=== PATIENT | female | born 1960 | race Caucasian/White ===

== ENCOUNTER → 2023-05-26 16:10 | Outpatient (REF) | payer OTHER, SELFPAY | LOC: RAD 16:10 | PROVIDERS: ATTENDING PHYSICIAN Nurse Practitioner Adult Health | DX: M54.9 Dorsalgia, unspecified (principal); Z87.442 Personal history of urinary calculi | CPT/HCPCS: 76770 ==

== ENCOUNTER 2023-06-09 06:15 | Day surgery (SDC) | payer OTHER, SELFPAY ==
[2023-06-07 07:43] VITALS: BMI 21.8
[2023-06-07 08:57] LABS: Hematocrit 42.5 % (37.0-47.0); Hemoglobin 14.6 g/dL (12.0-16.0); Mean Corp Hgb Conc. 34.4 g/dL (33.0-37.0); Mean Corpuscular Hgb 31.9 pg (27.0-31.0); Mean Corpuscular Volume 92.8 fL (81.0-99.0); Mean Platelet Volume 9.1 fL (7.4-10.4); Platelet Count 272 10^3/uL (130-400); Red Blood Cell Count 4.58 10^6/uL (4.20-5.40); Red Cell Dist. Width 12.2 % (11.5-14.5); White Blood Cell Count 7.4 10^3/uL (4.8-10.8)
[2023-06-07 09:01] LABS: Urine Albumin 2+ (Neg - Trace); Urine Bilirubin 1+ (Negative); Urine Character Clear (Clear); Urine Color Yellow; Urine Glucose Negative (Negative); Urine Ketone Trace (Negative); Urine Leukocyte 2+ (Negative); Urine Nitrite Negative (Negative); Urine Occult Blood 4+ (Negative); Urine Specific Gravity 1.025 (<1.030); Urine Urobilinogen Negative (Neg - 1+)
[2023-06-07 09:08] LABS: APTT 27.1 Sec (23.4-35.0); INR 0.94; PT 12.6 Sec (11.4-14.6)
[2023-06-07 09:46] LABS: Urine Calcium Oxalate Crystals Present
[2023-06-07 09:47] LABS: Urine Bacteria Few (Negative); Urine Red Blood Cell >100 /HPF (0-2); Urine White Cell 70-80 /HPF (0-5)
[2023-06-07 10:21] LABS: Blood Urea Nitrogen 27 mg/dl (7-17); Carbon Dioxide 27 mmol/L (22-30); Chloride 103 mmol/L (98-107); Estimated Creatinine Clearance 71 ml/min; Glucose 85 mg/dl (70-99); Potassium 4.8 mmol/L (3.5-5.1); Sodium 137 mmol/L (135-145); eGFR > 60.00
--- NOTE | 2023-06-07 10:43 | PTCARENOTE ---
Urine WBC's 70-80, Mimi at Dr. Emerson's office notified.
[2023-06-09] VITALS (8 sets, daily range): BP systolic 107–131; BP diastolic 66–88; BMI 21.8
[2023-06-09] MEDS: NORMOSOL-R 1000 IV (08:09)
[2023-06-09] MEDS: Pyridium 200 MG PO (12:47)
--- NOTE | 2023-06-09 12:50 | SUR.PHASEI ---
Dr. Green notified pt pulse ox 99-100% on room air. Per Dr. Green, pt stable for discharge to [facility].
== END 2023-06-09 14:03 | disposition home or self-care (01) ==
LOC: SDS 06:15
PROVIDERS: ATTENDING PHYSICIAN Specialist; FAMILY PHYSICIAN Nurse Practitioner Adult Health
DX: N20.0 Calculus of kidney (principal)
CPT/HCPCS: 52356; 36415; 74018; 76000; 80048; 81003; 81015; 85027; 85610; 85730; 93005; C1894; C2617